=== PATIENT | male | born 1935 | race Caucasian/White ===

== ENCOUNTER 2023-05-05 17:42 | Emergency (ER) | payer MEDICARE, SELFPAY ==
[2023-05-05 18:27] VITALS: BP 174/77; PULSE 62; RESP 16; TEMP 36.8; O2SAT 99; BMI 22.3
--- NOTE | 2023-05-05 19:06 | ED.GENADULT ---
HPI - General Adult General Chief complaint: Fall/Minor Trauma Stated complaint: Cellulitis L hand Time Seen by Provider: 05/05/23 19:03 History of Present Illness HPI narrative: Pt c/o left hand injury. Worried about it being infected. Pt fell yesterday. From [facility]. Denies LOC. 88-year-old man presenting to the emergency department with concern of potential infection on his hand. He is here somewhat reluctantly with underlying history of dementia. 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 Is here on advice of his daughter was quite concerned about infection that has evolved in the left hand. Apparently fell 2 days ago while jogging he says; tripped and fell. Struck his head and injured his left hand. Has not had a fever but left hand has started to swell and become increasingly painful over the last 2 days; even the course of the day. Was imaged in head and left arm and hand according to daughters report. Related Data Previous Rx's Medication Instructions Recorded amoxicillin 875 mg-potassium 1 tab PO BID #14 tabs 05/05/23 clavulanate 125 mg tablet Review of Systems Status of ROS: Reports: unobtainable due to mental status Exam Narrative: Exam Narrative: Does have clearly some dementia repeatedly demanding answers to questions. Difficult to negotiate dementia. Breathing easily. NAD. Carefully professionally dressed. 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 Heart in regular rate and rhythm. Noticeable swelling scabbing at the left forehead. Cranial nerves look to be intact equal pupils. Extraocular movements are full. Moving all extremities without difficulty but favoring the left hand little bit. There is moderate soft swelling with calor and induration extensively over the left hand and erythema and calor extends to the upper 3rd of the forearm. It is sensitive to palpation over the dorsum of the hand. Opens and closes his hand fully. There is after removal of Band-Aids and approximately 2 ends laceration between the 3rd and 4th interspace on the dorsum of the hand. This has been repaired. There is some purulence at the edges of the wound. There is also a circular abrasion along the ulnar wrist about 3 in proximal. Small purulence or maybe granulation tissue here. Another abrasion on the thumb. Well-perfused. Const: Vital Signs, click to edit/add: Vital Signs - 24 hr 05/05/23 18:27 Temperature 98.2 F Pulse Rate [Right Pulse Oximeter] 62 Respiratory Rate 16 Blood Pressure [Ri ght Upper Arm] 174/77 H Pulse Oximetry 99 Oxygen Delivery Me thod Room Air Documenting provider has reviewed patient's vital signs: yes Course Vital Signs Vital signs: Initial Vital Signs Temperature 98.2 F 05/05/23 18:27 Temperature Source Temporal Artery Scan 05/05/23 18:27 Pulse Rate 62 05/05/23 18:27 Pulse Rhythm Regular 05/05/23 18:27 Respiratory Rate 16 05/05/23 18:27 Blood Pressure 174/77 H 05/05/23 18:27 Blood Pressure Mean 109 H 05/05/23 18:27 Blood Pressure Position Sitting 05/05/23 18:27 Pulse Oximetry 99 05/05/23 18:27 Oxygen Delivery Method Room Air 05/05/23 18:27 Vital Signs Temperature 98.2 F 05/05/23 18:27 Pulse Rate 62 05/05/23 18:27 Respiratory Rate 16 05/05/23 18:27 Blood Pressure 174/77 H 05/05/23 18:27 Pulse Oximetry 99 05/05/23 18:27 Oxygen Delivery Method Room Air 05/05/23 18:27 Temperature 98.2 F 05/05/23 18:27 Pulse Rate 62 05/05/23 18:27 Respiratory Rate 16 05/05/23 18:27 Blood Pressure 174/77 H 05/05/23 18:27 Pulse Oximetry 99 05/05/23 18:27 Oxygen Delivery Method Room Air 05/05/23 18:27 Medications Administered Medications: Discontinued Medications Generic Name Dose Route Start Last Admin Trade Name Андрей PRN Reason Stop Dose Admin Amoxicillin/Clavulanate Potassium 875 mg 05/05/23 21:18 05/05/23 21:31 Amoxicillin/Clavulanate 875 Mg/125 Mg Tablet PO 05/05/23 21:19 875 mg ONCE ONE Administration Amoxicillin/Clavulanate Potassium 875 mg 05/06/23 08:00 05/05/23 23:00 Amoxicillin/Clavulanate 875 Mg/125 Mg Tablet PO 05/08/23 20:00 Not Given BIDWM OLIVIA Sodium Chloride 500 mls @ 500 mls/hr 05/05/23 19:17 05/05/23 20:34 0.9 % Sodium Chloride 500 Ml IV 05/05/23 20:16 Infused .Q1H ONE Infusion Ceftriaxone Sodium 1 gm/ 100 mls @ 200 mls/hr 05/05/23 19:17 05/05/23 20:35 Sodium Chloride IVPB 05/05/23 19:18 Infused ONCE ONE Infusion Vancomycin HCl 1,500 mg/ 515 mls @ 257.5 mls/hr 05/05/23 20:09 05/05/23 20:52 Sodium Chloride IVPB 05/05/23 20:10 Not Given ONCE ONE Protocol Olanzapine 5 mg 05/05/23 19:51 05/05/23 20:53 Olanzapine 5 Mg Tab.Rapdis PO 05/05/23 19:52 Not Given ONCE ONE Olanzapine 5 mg 05/05/23 19:53 05/05/23 20:53 Olanzapine 5 Mg Tab.Rapdis PO 05/05/23 19:54 Not Given ONCE ONE Olanzapine 5 mg 05/05/23 19:53 05/05/23 20:52 Olanzapine 5 Mg Tab.Rapdis PO 05/05/23 19:54 Not Given ONCE ONE Medical Decision Making MDM Narrative Medical decision making narrative: I would have concern regarding rapidity of spread as noted. Certainly also degree of infection. Challenging is to care for Mr. Brice and unfortunately his disagreeable dementia. Will need labs and cultures. Wound and blood culture. Would recommend initiating IV antibiotics as well. Were able to negotiate IV placement and a g of Rocephin. White count is not elevated. CRP minimally elevated. After giving a g of Rocephin was also contemplating initiation of vancomycin pending labs. This was prepared. At this point though Mr. Brice did not want any further cares and removed IV. This was going to be difficult to negotiate as would hospitalization. Will transition then to oral antibiotics and given holiday weekend try to provide with enough to get through until they return home. This was necessitated as their insurance did not cover meds in [facility]. Dressed with bacitracin Adaptic and kerlix Will begin Augmentin yet tonight. See patient discharge plan Lab Data Lab results reviewed: Yes I reviewed the patient's lab results Labs: Lab Results 05/05/23 Range/Units 19:40 WBC 10.68 (4.50-11.00) K/uL RBC 4.15 L (4.30-5.90) m/uL Hgb 11.1 L (13.5-17.5) gm/dL Hct 36.6 L (37.0-53.0) % MCV 88 (80-100) fL MCH 27 (26-34) pg MCHC 30 L (32-36) gm/dL RDW Coeff of Gregorio 16.8 H (11.5-15.5) % Plt Count 260 (140-440) K/uL Neut % (Auto) 78.2 H (42.0-72.0) % Lymph % (Auto) 11.5 L (20-44) % Elbert % (Auto) 9.3 (0.0-11.0) % Eos % (Auto) 0.7 (0.0-7.0) % Baso % (Auto) 0.2 (0.0-3.0) % Neut # (Auto) 8.40 H (1.7-7.0) K/uL Lymph # (Auto) 1.20 (0.90-2.90) K/uL Elbert # (Auto) 1.00 H (0.00-0.90) K/UL Eos # (Auto) 0.08 (0.00-0.50) K/uL Baso # (Auto) 0.02 (0.00-0.30) K/uL Abs Immat Gran (auto) 0.01 (0.00-0.30) K/uL Imm/Tot Granulo (auto) 0.1 % Sodium 140 (135-149) mmol/L Potassium 3.8 (3.6-5.1) mmol/L Chloride 103 (96-114) mmol/L Carbon Dioxide 27 (20-32) mmol/L Anion Gap 10 (7-15) mEq/L BUN 19 (7-30) mg/dL Creatinine 1.0 (0.5-1.5) mg/dL Estimated Creat Clear 53.42 Estimated GFR 73 ml/min Glucose 113 (60-115) mg/dL Calcium 8.7 (8.4-10.6) mg/dL C-Reactive Protein 1.6 H (0.5-1.0) mg/dL Discharge Plan Discharge Clinical Impression: Wound infection, Cellulitis Condition: Stable Additional Instructions: I would expect some spread of redness yet over the next day or 2. Would be seen again however for fever, marked increase in swelling, more severe pain, erythema approaching the elbow. Wound and blood cultures are pending here. Over this next week change dressing daily to twice daily depending on degree of drainage with antibiotic ointment, nonstick dressing like Telfa or [employer] and gauze/Kerlix wrap. Elevate for comfort. Soak in warm soapy or Epsom salt water 2 times daily over the next 4 days. Augmentin from [facility]. Prescriptions: New amoxicillin-pot clavulanate 875-125 mg tablet 1 tab PO BID Qty: 14 0RF Follow Up/Referrals: Provider,Not a Local [Primary Care Provider] - Stand Alone Forms: [employer] Info Instructions
[2023-05-05] MEDS: 0.9 % SODIUM CHLORIDE 500 ML 500 ML IV (19:48)
[2023-05-05] MEDS: cefTRIAXone 1 GM in 0.9 % SODIUM CHLORIDE Mini-bag 100 ML IVPB (19:50)
[2023-05-05 19:52] LABS: Basophils Absolute Auto 0.02 K/uL (0.00-0.30); Basophils Percent Auto 0.2 % (0.0-3.0); Eosinophils Absolute Auto 0.08 K/uL (0.00-0.50); Eosinophils Percent Auto 0.7 % (0.0-7.0); Hematocrit 36.6 % (37.0-53.0); Hemoglobin* 11.1 gm/dL (13.5-17.5); Immature Granulocytes Abs Auto 0.01 K/uL (0.00-0.30); Immature Granulocytes Pct Auto 0.1 %; Lymphocytes Percent Auto 11.5 % (20-44); Mean Corpuscular HGB Conc 30 gm/dL (32-36); Mean Corpuscular Hemoglobin 27 pg (26-34); Mean Corpuscular Volume 88 fL (80-100); Monocytes Percent Auto 9.3 % (0.0-11.0); Neutrophils Percent Auto 78.2 % (42.0-72.0); Platelet Count* 260 K/uL (140-440); RDW Coefficient of Variation % 16.8 % (11.5-15.5); Red Blood Count 4.15 m/uL (4.30-5.90); White Blood Count* 10.68 K/uL (4.50-11.00)
[2023-05-05 19:54] LABS: Slide Review Reflex No
[2023-05-05 20:29] LABS: Chloride* 103 mmol/L (96-114); Potassium* 3.8 mmol/L (3.6-5.1); Sodium* 140 mmol/L (135-149)
[2023-05-05 20:32] LABS: Est. Creatinine Clearance* 53.42; Estimated Glomerular Filt Rate 73 ml/min
[2023-05-05 20:33] LABS: Anion Gap 10 mEq/L (7-15); Blood Urea Nitrogen* 19 mg/dL (7-30); Calcium* 8.7 mg/dL (8.4-10.6); Carbon Dioxide* 27 mmol/L (20-32); Glucose* 113 mg/dL (60-115)
[2023-05-05 20:36] LABS: C Reactive Protein* 1.6 mg/dL (0.5-1.0)
--- NOTE | 2023-05-05 20:45 | ED.NURSE ---
patient pulled out his IV. states that he is going home and will not be receiving anymore antibiotics.
[2023-05-05] MEDS: AMOXICILLIN/CLAVULANATE 875 mg/125 mg TABLET PO (21:31)
== END 2023-05-05 21:45 | disposition home or self-care (01) ==
PROVIDERS: Emergency Provider Family Medicine
DX: L03.114 Cellulitis of left upper limb (principal)
CPT/HCPCS: 36415; 80048; 85025; 86140; 87040; 87070; 87077; 87186; 96365; 96375; 99284; A9270; J0696; J7120